=== PATIENT | male | born 2000 | race Asian ===

== ENCOUNTER 2023-09-17 13:59 | Emergency (ER) | payer BC, SELFPAY ==
[2023-09-17 14:01] VITALS: BP 136/96; PULSE 109; RESP 16; TEMP 36.4; O2SAT 99
[2023-09-17 14:07] VITALS: BP 136/96; PULSE 109; RESP 16; TEMP 36.4; O2SAT 99
--- NOTE | 2023-09-17 14:08 | ED.URI ---
HPI - URI/Sore Throat General Chief Complaint: Upper Respiratory Infection Stated Complaint: sore throat Time Seen by Provider: 09/17/23 14:02 Source: patient Mode of arrival: ambulatory Limitations: no limitations History of Present Illness HPI Narrative: This is a 23-year-old identifies as female presents with sore throat the last couple of days with no fever chills no shortness of breath no nausea or vomiting no abdominal pain no chest pain or Audible wheeze MD elicited complaint: sore throat Onset (ago): day(s) Severity: mild Related Data Home Medications Medication Instructions Recorded Confirmed levetiracetam 750 mg tablet 750 mg PO DAILY 09/17/23 09/17/23 (Keppra) oxcarbazepine 600 mg tablet 600 mg PO DAILY 09/17/23 09/17/23 (Trileptal) Allergies Allergy/AdvReac Type Severity Reaction Status Date / Time No Known Allergies Allergy Verified 09/17/23 14:02 Review of Systems Review of Systems: All systems reviewed & are unremarkable except as noted in HPI and below PMFSH Past Medical History Medical History Patient denies medical problems Exam Const: General: healthy appearing, no acute distress and alert Nutritional Appearance: well nourished Orientation/consciousness: patient oriented x3 Limitations: no limitations HENMT: Head: normal to inspection Other: tonsils erythematous with tender submandibular gland Eyes: Conjunctivae: conjunctivae normal Chest: Chest palpation & inspection: normal inspection of the chest Resp: Effort & Inspection: normal respiratory effort Auscultation: clear to auscultation bilaterally Cardio: Rate: regular rate Rhythm: regular rhythm GI: GI Palp: Yes Soft to palpation Auscultation: normal bowel sounds Skin: General skin exam: normal color Rashes: no rashes Course Course Emergency Course: patient with a history of seizures and is new to [facility] and will give information about Neurology to establish with and strep was performed and reviewed and was negative Vital Signs Vital signs: Vital Signs Temperature 36.4 C L 09/17/23 14:01 Pulse Rate 109 H 09/17/23 14:01 Respiratory Rate 16 09/17/23 14:01 Blood Pressure 136/96 H 09/17/23 14:01 Pulse Oximetry 99 09/17/23 14:01 Oxygen Delivery Room Air 09/17/23 14:01 Temperature 36.4 C L 09/17/23 14:07 Pulse Rate 109 H 09/17/23 14:07 Respiratory Rate 16 09/17/23 14:07 Blood Pressure 136/96 H 09/17/23 14:07 Pulse Oximetry 99 09/17/23 14:07 Oxygen Delivery Room Air 09/17/23 14:07 Critical Care Time Critical Care Time Critical Care Time: No Discharge Plan Discharge Clinical Impression: Pharyngitis Qualifiers: Pharyngitis/tonsillitis etiology: other specified organisms Qualified Code(s): J02.8 - Acute pharyngitis due to other specified organisms Patient Disposition: Home, Self-Care Condition: Stable Instructions: Antibiotic Form, Pharyngitis (ED) Additional Instructions: advised take medicine as prescribed and follow-up with primary if symptoms persist or worsen. Prescriptions: New azithromycin [Zithromax Z-Karlos] 250 mg tablet See Rx Instructions .ROUTE .COMPLEX Qty: 6 0RF Rx Instructions: For 250 mg dose pack: take 500 mg today (day 1), then 250 mg for 4 days (days 2-5) No Action oxcarbazepine [Trileptal] 600 mg Tablet 600 mg PO DAILY levetiracetam [Keppra] 750 mg Tablet 750 mg PO DAILY Follow-up/Referrals: UNKNOWN,DOCTOR [Primary Care Provider] - Time of Disposition: 14:38
[2023-09-17 14:33] LABS: Strep Group A RT-PCR NOT DETECTED (Negative)
== END 2023-09-17 14:40 | disposition home or self-care (01) ==
PROVIDERS: Emergency Provider Emergency Medicine
DX: J02.8 Acute pharyngitis due to other specified organisms (principal); Z79.899 Other long term (current) drug therapy
CPT/HCPCS: 87651; 99283

== ENCOUNTER 2024-02-14 19:27 | Emergency (ER) | payer BC, SELFPAY ==
[2024-02-14 19:30] VITALS: BP 136/90; PULSE 78; RESP 18; TEMP 36.6; O2SAT 98
--- NOTE | 2024-02-14 19:49 | ED.GENADULT ---
HPI - General Adult General Chief complaint: Wound/Laceration Stated complaint: Left Thumb Injury Time Seen by Provider: 02/14/24 19:30 Source: patient Mode of arrival: ambulatory Limitations: no limitations History of Present Illness HPI narrative: 23-year-old cooking in cut the left thumb finger tip. Bleeding would stop. Thumb was bandaged any and Behzad came to the emergency department for evaluation treatment. Denies any numbness or any other injury or loss of function. Not up-to-date On tetanus immunization. otherwise patient is eating drinking voiding stooling fine without fever cough runny nose sore throat any other bleeding or bruising or any other injury. Denies any other complaints. Related Data Home Medications Medication Instructions Recorded Confirmed levetiracetam 750 mg tablet 1,500 mg PO DAILY 02/14/24 02/14/24 (Keppra) oxcarbazepine 600 mg tablet 300 mg PO DAILY 02/14/24 02/14/24 (Trileptal) Allergies Allergy/AdvReac Type Severity Reaction Status Date / Time No Known Allergies Allergy Verified 11/27/23 14:06 Review of Systems Review of Systems: All systems reviewed & are unremarkable except as noted in HPI and below [facility] Past Medical History Medical History Patient denies medical problems Social History Social History (Updated 11/27/23 @ 14:11 by Meme Gonsalez MA) Smoking status: Current every day smoker Tobacco type: e-cigarettes/vaping Alcohol intake: current Alcohol use details: Rarely Substance use type: marijuana Comments 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 Head normocephalic, atraumatic.? Eyes conjunctiva pink sclera nonicteric.? Extraocular movements are intact.? Ears externally normal.? Extremities no cyanosis clubbing or edema.? left thumb 1 cm laceration over the radial aspect of the distal phalanx flap laceration. There is also an indentation of the distal nail which may indicate laceration under the nail bed. Good capillary refill. Normal range of motion of his fingers including his thumb. Skin is warm and dry without rashes or lesions.? Neurological patient is alert and oriented x4.? Motor and sensory grossly intact.? Gait is normal. Course Vital Signs Vital signs: Vital Signs Temperature 36.6 C 02/14/24 19:30 Pulse Rate 78 02/14/24 19:30 Respiratory Rate 18 02/14/24 19:30 Blood Pressure 136/90 02/14/24 19:30 Pulse Oximetry 98 02/14/24 19:30 Oxygen Delivery Room Air 02/14/24 19:30 Temperature 36.6 C 02/14/24 19:30 Pulse Rate 78 02/14/24 19:30 Respiratory Rate 18 02/14/24 19:30 Blood Pressure 136/90 02/14/24 19:30 Pulse Oximetry 98 02/14/24 19:30 Oxygen Delivery Room Air 02/14/24 19:30 Medical Decision Making MDM Narrative Medical decision making narrative: ? Patient placed in room: 6 ? History and physical was performed. Independent Historian: patient External Source Review: Differential Dx includes but not limited to: laceration foreign body Medications were Reviewed: home medicines reviewed Medications /treatment given: Tdap given Procedure Name: Laceration Repair Indication: Reduce risk of infection Location: __Left distal phalanx of the thumb non dominant hand Pre-Procedure Diagnosis: Laceration Post-Procedure Diagnosis: Repaired Laceration Informed consent was obtained before procedure started. PROCEDURE: The appropriate timeout was taken. The area was prepped and draped in the usual sterile fashion. Local anesthesia was achieved using digital block 3cc of ?Lidocaine 1% * without without epinephrine. The wound was copiously irrigated with tap water and. 2, 5-0 Nylon interrupted sutures were placed. pressure dressing was applied. Estimated blood loss was less than 0.5 mL. A dressing was applied to the area and anticipatory guidance, as well as standard post-procedure care, was explained. Return precautions are given.?The patient tolerated the procedure well without complications. Follow-up visit set for suture removal and evaluation of the laceration. Independently Interpreted by me: Shared decision Making: Evaluation was discussed all questions were asked and answered and patient agreed with the plan Behzad would have the sutures removed in the office in 7-10 days Social Situation Impacting Patients Care: DISCHARGE DIAGNOSIS: laceration left nondominant thumb DISPOSITION : discharge home CONDITION AT DISCHARGE: stable improved Vital Signs Vital Signs: Vital Signs Temperature 36.6 C 02/14/24 19:30 Pulse Rate 78 02/14/24 19:30 Respiratory Rate 18 02/14/24 19:30 Blood Pressure 136/90 02/14/24 19:30 Pulse Oximetry 98 02/14/24 19:30 Oxygen Delivery Room Air 02/14/24 19:30 Temperature 36.6 C 02/14/24 19:30 Pulse Rate 78 02/14/24 19:30 Respiratory Rate 18 02/14/24 19:30 Blood Pressure 136/90 02/14/24 19:30 Pulse Oximetry 98 02/14/24 19:30 Oxygen Delivery Room Air 02/14/24 19:30 Discharge Plan Discharge Clinical Impression: Laceration of left thumb Qualifiers: Encounter type: initial encounter Damage to nail status: with damage Foreign body presence: without foreign body Qualified Code(s): S61.112A - Laceration without foreign body of left thumb with damage to nail, initial encounter Patient Disposition: Home, Self-Care Condition: Stable Instructions: Finger Laceration (ED) Additional Instructions: using hydrogen peroxide once or twice a day to laceration. Tylenol and/or ibuprofen for pain. Have sutures removed in 7-10 days by her primary care provider Dr. Dr. Mitesh Thomas or other primary care provider in the area from list given. Return any problems or concerns. Prescriptions: No Action oxcarbazepine [Trileptal] 600 mg tablet 300 mg PO DAILY levetiracetam [Keppra] 750 mg tablet 1,500 mg PO DAILY Follow-up/Referrals: UNKNOWN,DOCTOR [Primary Care Provider] - Time of Disposition: 20:29
[2024-02-14] MEDS: TETANUS,DIPHTHERIA,AC PERTUSSIS ADULT 0.5 ML (ADACEL) IM (19:58)
[2024-02-14 20:34] VITALS: BP 122/82; PULSE 74; RESP 18; O2SAT 98
== END 2024-02-14 20:34 | disposition home or self-care (01) ==
PROVIDERS: Emergency Provider Emergency Medicine
DX: S61.112A Laceration without foreign body of left thumb with damage to nail, initial encounter (principal); F17.290 Nicotine dependence, other tobacco product, uncomplicated; Z23 Encounter for immunization; X58.XXXA Exposure to other specified factors, initial encounter
CPT/HCPCS: 12001; 90471; 90715; 99282; J2003